=== PATIENT | male | born 1930 | race Two or more races ===

== ENCOUNTER 2017-10-08 03:19 | Observation (INO) | payer OTHER ==
[~2017-10-08] VITALS: Ht 175.3 cm; Wt 81.6 kg
[2017-10-08] MEDS ORDERED: ACETTAB85 OR (06:31)
[2017-10-08] MEDS ORDERED: BICA50TA7 PO (06:31)
[2017-10-08] MEDS ORDERED: CLON0.1T PO (06:31)
[2017-10-08] MEDS ORDERED: METH500T6 PO (06:31)
[2017-10-08] MEDS ORDERED: HYDR25TA4 PO (06:31)
[2017-10-08] MEDS ORDERED: ACET300T4 PO (06:31)
[2017-10-08] MEDS ORDERED: METH5TAB77 PO (06:31)
[2017-10-08] MEDS ORDERED: CALC667C PO (06:31)
[2017-10-08] MEDS ORDERED: NAP500T GT (06:31)
[2017-10-08] MEDS ORDERED: DILT60TA27 PO (06:31)
[2017-10-08] MEDS ORDERED: DIVA250T3 PO (06:31)
[2017-10-08] MEDS ORDERED: DONETAB6 PO (06:31)
[2017-10-08] MEDS ORDERED: SERT-274 PO (06:31)
[2017-10-08] MEDS ORDERED: CLIN1CAP4 PO (06:31)
[2017-10-08] MEDS ORDERED: OME20T PO (06:32)
[2017-10-08] MEDS ORDERED: METO25TA5 PO (06:32)
[2017-10-08] MEDS ORDERED: SODIUM CHLORIDE 0.9% 1,000 ML IV ONE (06:46)
[2017-10-08 07:49] LABS: Basophils # (auto) 0 uL; Basophils % (auto) 0.3 % (0.0-2.0); Eosinophils # (auto) 0 uL; Eosinophils % (auto) 0.5 % (0.0-7.0); Hematocrit 30.1 % (41.0-53.0); Hemoglobin 10.6 g/dL (13.5-17.5); Lymphocytes % (auto) 14.8 % (10.0-50.0); Mean Corpuscular Hemoglobin 31.2 pg (28.0-32.0); Mean Corpuscular Hgb Conc. 35.2 g/dL (32.0-36.0); Mean Corpuscular Volume 88.5 fL (80.0-100.0); Monocytes # (auto) 0.5 uL; Monocytes % (auto) 7.3 % (0.0-12.0); Neutrophils # (auto) 5.4 uL; Neutrophils % (auto) 77.1 % (37.0-80.0); Platelet Count (auto) 138 10^3/uL (140-450); Red Cell Distribution Width 13.3 % (11.8-14.3)
[2017-10-08 08:31] LABS: Alanine Aminotransferase 50 U/L (16-61); Albumin 3.5 g/dL (3.4-5.0); Anion Gap 12 (5-15); Aspartate Aminotransferase 194 U/L (15-37); BUN/Creatinine Ratio 15.1; Blood Alcohol < 3.0 mg/dL (0-5); Blood Urea Nitrogen 43 mg/dL (7-18); Calcium 9.5 mg/dL (8.5-10.1); Carbon Dioxide 24 mmol/L (21-32); Chloride 105 mmol/L (98-107); GFR African American 27 mL/min; GFR Non-African American 22 mL/min; Glucose 93 mg/dL (74-106); Magnesium 2.4 mg/dL (1.6-2.6); Potassium 3.4 mmol/L (3.5-5.1); Sodium 141 mmol/L (136-145)
[2017-10-08 08:38] LABS: Alkaline Phosphatase 65 U/L (45-117); Bilirubin, Total 0.9 mg/dL (0.2-1.0); Total Protein 6.8 g/dL (6.4-8.2)
[2017-10-08 09:01] LABS: INR 0.97 (0.9-1.15); Partial Thromboplastin Time 28.2 sec (23.78-33.04); Prothrombin Time 10.4 sec (9.27-12.13)
[2017-10-08] MEDS ORDERED: POTASSIUM EFFERVESENT TAB 25 MEQ PO ONE (09:45)
[2017-10-08] MEDS ORDERED: ASPirin 81 mg TAB PO ONE (09:45)
[2017-10-08] MEDS ORDERED: LORazepam 2MG/ML-1ML VIAL IV ONE (11:30)
[2017-10-08 11:52] LABS: Urine Amorphous Crystal FEW /hpf (None Seen); Urine Bacteria FEW /hpf (None Seen); Urine Blood 2+ /uL (Negative); Urine Hyaline Cast MOD /lpf (0 - 2); Urine Mucus FEW (None Seen); Urine Specific Gravity 1.019 (1.001-1.035); Urine WBC 8 /hpf (0 - 3)
[2017-10-08] MEDS ORDERED: IBUPROFEN 400 MG TAB PO ONE (12:00)
[2017-10-08 12:27] LABS: Alcohol, Urine < 3.0 mg/dL (0-5); Amphetamine Screen, Urine NEGATIVE (NEGATIVE); Barbiturate Scree,Urine NEGATIVE (NEGATIVE); Benzodiazephine Screen, Urine NEGATIVE (NEGATIVE); Cannabinoid Screen, Urine POSITIVE (NEGATIVE); Cocaine Screen, Urine NEGATIVE (NEGATIVE); Opiate Scree,Urine POSITIVE (NEGATIVE); Phencyclidine Screen, Urine NEGATIVE (NEGATIVE)
[2017-10-08 12:46] VITALS: BP 116/86
== END 2017-10-08 13:00 | disposition short-term general hospital (02) | DRG 70 ==
LOC: ER 03:19 → EDBD 03:19 → OVERFLOW 03:20 → ER 13:00
PROVIDERS: ADMIT Emergency Medicine; ATTEND Emergency Medicine
DX: G93.41 Metabolic encephalopathy (principal); I21.4 Non-ST elevation (NSTEMI) myocardial infarction; I10 Essential (primary) hypertension; I25.10 Atherosclerotic heart disease of native coronary artery without angina pectoris
CPT/HCPCS: 36415; 70450; 71045; 80053; 80307; 80320; 81001; 82962; 83735; 84484; 85025; 85379; 85610; 85730; 93005; 99285; G0378; J7030